=== PATIENT | female | born 1965 | race Caucasian/White ===

== ENCOUNTER 2022-10-01 00:36 | Emergency (ER) | payer OTHER ==
[2022-10-01] MEDS ORDERED: Sodium Chloride 0.9% 10 ML Syringe FLUSH PRN (00:55)
[2022-10-01] MEDS ORDERED: HYDROmorphone 0.5 MG/0.5 ML Syringe IVPUSH ONE (00:56)
[2022-10-01] MEDS ORDERED: methylPREDNISolone Sodium Succinate 125 MG/2 ML SDV IVPUSH ONE (00:56)
[2022-10-01] MEDS ORDERED: Albuterol/Ipratropium 3.0-0.5 MG/3 ML Neb Soln NEB ONE ×2 (00:56→01:55)
[2022-10-01 01:27] LABS: ESTIMATED GFR 74 mL/min (>60)
[2022-10-01] MEDS ORDERED: Azithromycin 250 MG Tab PO ONE (01:55)
[2022-10-01] MEDS ORDERED: Acetaminophen 325 MG Tab PO ONE (06:55)
== END 2022-10-01 06:54 | disposition home or self-care (01) ==
LOC: JD.ED 00:36
DX: J44.1 Chronic obstructive pulmonary disease with (acute) exacerbation (principal); E87.6 Hypokalemia; I25.2 Old myocardial infarction; F17.210 Nicotine dependence, cigarettes, uncomplicated; Z88.5 Allergy status to narcotic agent; Z88.8 Allergy status to other drugs, medicaments and biological substances; Z79.899 Other long term (current) drug therapy
CPT/HCPCS: 36415; 71045; 80053; 83880; 84484; 85025; 93005; 94640; 94762; 96374; 96375; 99285; A9270; J1170; J2930; J3490; 93010; 99284; J7620-GY

== ENCOUNTER 2022-10-23 07:37 | Emergency (ER) | payer OTHER ==
[2022-10-23] MEDS ORDERED: fentaNYL 100 MCG/2 ML SDV IVPUSH ONE (08:15)
[2022-10-23] MEDS ORDERED: Dextrose 5%-0.9% NaCl 1,000 ML IV SCH (08:15)
[2022-10-23] MEDS ORDERED: Metoclopramide 10 MG/2 ML SDV IVPUSH ONE (08:16)
[2022-10-23] MEDS ORDERED: Albuterol/Ipratropium 3.0-0.5 MG/3 ML Neb Soln NEB PRN (08:22)
[2022-10-23] MEDS ORDERED: Doxycycline 100 MG in Sodium Chloride 0.9% 100 ML IV ONE (10:50)
[2022-10-23] MEDS ORDERED: HYDROmorphone 0.5 MG/0.5 ML Syringe IVPUSH ONE (10:51)
[2022-10-23] MEDS ORDERED: methylPREDNISolone Sodium Succinate 125 MG/2 ML SDV IVPUSH ONE (10:51)
[2022-10-23 10:56] LABS: CORONAVIRUS COVID-19 NAA NEGATIVE (NEGATIVE)
[2022-10-23] MEDS ORDERED: Acetaminophen 325 MG Tab PO ONE (12:24)
== END 2022-10-23 12:39 | disposition home or self-care (01) ==
LOC: JD.ED 07:37
DX: J44.1 Chronic obstructive pulmonary disease with (acute) exacerbation (principal); R09.1 Pleurisy; I25.10 Atherosclerotic heart disease of native coronary artery without angina pectoris; I25.2 Old myocardial infarction; I50.9 Heart failure, unspecified; Z88.5 Allergy status to narcotic agent; Z88.8 Allergy status to other drugs, medicaments and biological substances; Z79.899 Other long term (current) drug therapy; Z20.822 Contact with and (suspected) exposure to COVID-19
CPT/HCPCS: 0241U; 36415; 71045; 80053; 81001; 83605; 83735; 83880; 84443; 85025; 85379; 85610; 85652; 85730; 86140; 87040; 94640; 96361; 96365; 96375; 99285; A9270; J1170; J2765; J2930; J3010; J3490; J7042; 93010; 99284; J7620-GY

== ENCOUNTER 2022-10-24 04:49 | Emergency (ER) | payer OTHER ==
[2022-10-24] MEDS ORDERED: Aspirin 81 MG Tab.Chew PO ONE (05:27)
[2022-10-24] MEDS ORDERED: Ondansetron 4 MG/2 ML SDV IVPUSH ONE (05:27)
[2022-10-24] MEDS ORDERED: Nitroglycerin 0.4 MG Tab.SL SL PRN (05:27)
[2022-10-24] MEDS ORDERED: Sodium Chloride 0.9% 1,000 ML IV SCH (05:30)
[2022-10-24] MEDS ORDERED: Morphine 2 MG/ML SYRINGE IVPUSH ONE (05:56)
[2022-10-24] MEDS ORDERED: Heparin Sodium 5,000 Units/ML Vial IVPUSH ONE (06:24)
[2022-10-24] MEDS ORDERED: Heparin Sodium/D5W 25,000 UNITS/500 ML BAG IV SCH (06:30)
[2022-10-24] MEDS ORDERED: fentaNYL 100 MCG/2 ML SDV IVPUSH ONE (07:36)
== END 2022-10-24 07:50 ==
LOC: JD.ED 04:49
DX: I21.4 Non-ST elevation (NSTEMI) myocardial infarction (principal); I25.10 Atherosclerotic heart disease of native coronary artery without angina pectoris; I25.2 Old myocardial infarction; E03.9 Hypothyroidism, unspecified; J44.9 Chronic obstructive pulmonary disease, unspecified; Z87.891 Personal history of nicotine dependence; Z88.5 Allergy status to narcotic agent; Z79.899 Other long term (current) drug therapy
CPT/HCPCS: 36415; 70450; 70450-26; 71045; 71045-26; 80053; 83880; 84484; 85025; 85379; 85610; 85730; 93005; 93010; 96365; 96375; 96376; 99285; 99285-25; A9270-GY; J1644; J2270; J2405; J3010; J7030